=== PATIENT | male | born 1980 | race Caucasian/White ===

== ENCOUNTER 2021-11-03 21:00 | Emergency (ER) | payer BC ==
[~2021-11-03] VITALS: Ht 162.6 cm; Wt 90.9 kg
[2021-11-04 00:43] LABS: BASOPHILS # (AUTO) 0.1 X10'3 (0-0.2); BASOPHILS % (AUTO) 0.9 % (0-1); EOSINOPHILS # (AUTO) 0.1 X10'3 (0-0.9); EOSINOPHILS % (AUTO) 1.5 % (0-6); HEMATOCRIT 43.9 % (42.0-52.0); HEMOGLOBIN 14.6 g/dl (14.0-17.9); LYMPHOCYTES # (AUTO) 2.3 X10'3 (1.1-4.8); LYMPHOCYTES % (AUTO) 24.6 % (21-51); MEAN CORPUSCULAR HEMOGLOBIN 30.1 PG (27.0-31.0); MEAN CORPUSCULAR HGB CONC 33.2 g/dL (33.0-36.5); MEAN CORPUSCULAR VOLUME 90.7 FL (78-98); MONOCYTES # (AUTO) 0.7 X10'3 (0-0.9); MONOCYTES % (AUTO) 7.6 % (2-12); NEUTROPHILS # (AUTO) 6.1 X10'3 (1.8-7.7); NEUTROPHILS % (AUTO) 65.4 % (42-75); PLATELET COUNT 178 X10'3 (140-440); RED BLOOD COUNT 4.84 X10'6 (4.70-6.10); RED CELL DISTRIBUTION WIDTH 13.6 % (11.5-14.5); WHITE BLOOD COUNT 9.3 X10'3 (4.5-11.0)
[2021-11-04 00:54] LABS: ALANINE AMINOTRANSFERASE 57 U/L (12-78); ALBUMIN 3.1 G/DL (3.4-5.0); ALBUMIN/GLOBULIN RATIO 0.9 (1.1-1.5); ALKALINE PHOSPHATASE 71 IU/L (46-116); ANION GAP 9 (8-16); BILIRUBIN,TOTAL 0.9 MG/DL (0.1-1.0); BLOOD UREA NITROGEN 26 MG/DL (7-18); BUN/CREATININE RATIO 30.2 (5.4-32.0); CALCIUM 8.4 MG/DL (8.5-10.1); CHLORIDE 105 MMOL/L (99-107); CREATININE 0.86 MG/DL (0.60-1.10); GLUCOSE 309 MG/DL (70-104); SODIUM 138 MMOL/L (135-145); TOTAL CARBON DIOXIDE 24.4 MMOL/L (24-32); TOTAL PROTEIN 6.4 G/DL (6.4-8.2); eGFR > 90 ML/MIN
[2021-11-04 01:08] LABS: ASPARTATE AMINO TRANSFERASE 49 U/L (10-37); POTASSIUM 4.7 MMOL/L (3.5-5.1)
[2021-11-04 01:14] VITALS: BP 116/89
[2021-11-04 01:15] LABS: CLARITY,URINE CLEAR (Clear); COLOR,URINE YELLOW (Yellow); GLUCOSE, URINE >=1000 mg/dl (Neg); KETONES,URINE TRACE mg/dl (Neg); LEUKOCYTE ESTERASE ,URINE NEGATIVE (Neg); NITRITES, URINE NEGATIVE (Neg); OCCULT BLOOD,URINE NEGATIVE (Neg); PROTEIN,URINE NEGATIVE (Neg); UROBILINOGEN,URINE 0.2 E.U/dL (0.2-1.0)
[2021-11-04 01:19] LABS: UA COLLECTION TYPE CLN CATCH MIDSTREAM
[2021-11-04 01:25] LABS: RBC,URINE 0-2 /HPF (0-2)
[2021-11-04 01:26] LABS: BACTERIA,URINE NONE SEEN /HPF (Neg)
[2021-11-04 01:27] LABS: MUCUS STRANDS MODERATE /LPF (Neg); SQUAMOUS EPITHELIAL CELL,UR MANY /LPF (FEW); YEAST FEW /HPF (NEGATIVE)
[2021-11-04] MEDS ORDERED: FURO-150 PO (01:37)
[2021-11-04] MEDS ORDERED: furosemide 10 MG/1 ML 10ml inj IV ONE (01:40)
[2021-11-04 01:51] LABS: URINE AMPHETAMINE SCREEN POSITIVE (Neg); URINE BARBITUATE SCREEN NEGATIVE (Neg); URINE BENZODIAZEPINES SCREEN NEGATIVE (Neg); URINE CANNABINOID SCREEN NEGATIVE (Neg); URINE COCAINE SCREEN NEGATIVE (Neg); URINE METHADONE SCREEN NEGATIVE (Neg); URINE OPIATE SCREEN NEGATIVE (Neg); URINE PHENCYCLIDINE SCREEN NEGATIVE (Neg)
[2021-11-04 03:11] LABS: LARGE PLATELETS MODERATE; PLATELET ESTIMATE NORMAL
== END 2021-11-04 02:49 | disposition home or self-care (01) ==
LOC: ER 21:01
DX: R60.0 Localized edema (principal); J45.909 Unspecified asthma, uncomplicated
CPT/HCPCS: 36415; 71045; 80053; 80305; 81001; 83880; 84484; 85008; 85025; 85610; 93005; 96374; 99285; J1940; 96372

== ENCOUNTER 2021-11-06 10:56 | Inpatient (IN) | payer BC ==
[~2021-11-06] VITALS: Ht 162.6 cm; Wt 90.9 kg
[~2021-11-06 10:56] MED LIST: FURO-150 PO
[2021-11-06 14:29] LABS: BASOPHILS # (AUTO) 0.1 X10'3 (0-0.2); BASOPHILS % (AUTO) 0.8 % (0-1); EOSINOPHILS # (AUTO) 0.1 X10'3 (0-0.9); EOSINOPHILS % (AUTO) 1.3 % (0-6); HEMATOCRIT 45.5 % (42.0-52.0); HEMOGLOBIN 14.8 g/dl (14.0-17.9); LYMPHOCYTES % (AUTO) 23.5 % (21-51); MEAN CORPUSCULAR HEMOGLOBIN 29.9 PG (27.0-31.0); MEAN CORPUSCULAR HGB CONC 32.5 g/dL (33.0-36.5); MEAN CORPUSCULAR VOLUME 91.8 FL (78-98); MEAN PLATELET VOLUME 10.4 FL (7.4-10.4); MONOCYTES # (AUTO) 0.6 X10'3 (0-0.9); MONOCYTES % (AUTO) 6.4 % (2-12); NEUTROPHILS # (AUTO) 5.9 X10'3 (1.8-7.7); PLATELET COUNT 158 X10'3 (140-440); RED BLOOD COUNT 4.96 X10'6 (4.70-6.10); RED CELL DISTRIBUTION WIDTH 13.7 % (11.5-14.5); WHITE BLOOD COUNT 8.7 X10'3 (4.5-11.0)
[2021-11-06 14:56] LABS: ALANINE AMINOTRANSFERASE 43 U/L (12-78); ALBUMIN 3.2 G/DL (3.4-5.0); ALKALINE PHOSPHATASE 64 IU/L (46-116); ANION GAP 8 (8-16); ASPARTATE AMINO TRANSFERASE 24 U/L (10-37); BILIRUBIN,TOTAL 0.7 MG/DL (0.1-1.0); BLOOD UREA NITROGEN 16 MG/DL (7-18); BUN/CREATININE RATIO 19.3 (5.4-32.0); CALCIUM 8.5 MG/DL (8.5-10.1); CHLORIDE 103 MMOL/L (99-107); CREATININE 0.83 MG/DL (0.60-1.10); GLUCOSE 324 MG/DL (70-104); POTASSIUM 3.9 MMOL/L (3.5-5.1); SODIUM 138 MMOL/L (135-145); TOTAL CARBON DIOXIDE 27.2 MMOL/L (24-32); TOTAL PROTEIN 6.4 G/DL (6.4-8.2); eGFR > 90 ML/MIN
[2021-11-06] MEDS ORDERED: magnesium hydroxide 30ml (MOM) UD suspension PO PRN (15:35)
[2021-11-06] MEDS ORDERED: magnesium 4gm in 100ml NS 100 ML IV PRN (15:35)
[2021-11-06] MEDS ORDERED: DEXTROSE 15 GM of carb/4 tabs (each vial/BOTTLE has 4 tablets) PO PRN ×2 (15:35)
[2021-11-06] MEDS ORDERED: potassium Cl 20 mEq SR tablet PO PRN ×2 (15:35)
[2021-11-06] MEDS ORDERED: PERFLUTREN PROTEIN-A MICROSPHR (Optison) 0.22 MG/ML 3ML VIAL IV ONE (15:35)
[2021-11-06] MEDS ORDERED: acetaminophen 325mg tablet PO PRN (15:35)
[2021-11-06] MEDS ORDERED: ondansetron/PF 4mg/2ml inj IV PRN (15:35)
[2021-11-06] MEDS ORDERED: dextrose 50%-water 50ml dispensing syringe IV PRN ×2 (15:35)
[2021-11-06] MEDS ORDERED: magnesium 2GM in 50ml NS 50 ML IV PRN (15:35)
[2021-11-06] MEDS ORDERED: albuterol 2.5 MG/3 ML nebule NEB PRN (15:35)
[2021-11-06] MEDS ORDERED: MESSAGE TO PHARMACY PO ONE (15:35)
[2021-11-06] MEDS ORDERED: glucagon, human recombinant 1mg kit SUBCUT PRN (15:35)
[2021-11-06] MEDS ORDERED: ipratropium/albuterol 3ml nebule NEB PRN (15:35)
[2021-11-06] MEDS ORDERED: potassium CL 10mEq/100ml bag 100 ML IV PRN (15:35)
[2021-11-06] MEDS ORDERED: mag hydrox/Alum hydrox/simeth 30ml oral suspension PO PRN (15:35)
[2021-11-06] MEDS ORDERED: furosemide 10 MG/1 ML 10ml inj IV ONE (15:45)
[2021-11-06 16:50] LABS: HEMOGLOBIN A1C 11.9 % (4.5-6.2)
[2021-11-06 17:00] VITALS: BP 127/54
[2021-11-06] MEDS ORDERED: FURO20TA4 PO (17:23)
--- NOTE | 2021-11-06 18:40 | NUR ---
Patient in room PCU 3018. I have received report from anna martel and had the opportunity to ask questions and assume patient care.
--- NOTE | 2021-11-06 18:42 | NUR ---
Patient in room PCU 3018. I have received report from Kobe EPSTEIN and had the opportunity to ask questions and assume patient care.
[2021-11-06] MEDS: insulin Lispro (HumaLOG) vial - multi-dose SQ SCH ×2 (19:13→21:26)
[2021-11-06] MEDS: K and/or MAG REPLACEMENT MC SCH (19:15)
[2021-11-06] MEDS: carVEDilol 3.125mg tablet PO SCH (19:20)
[2021-11-06] MEDS: docusate sod 100mg capsule PO SCH (19:20)
[2021-11-06] MEDS: enoxaparin 40mg/0.4ml syringe SQ SCH (19:20)
[2021-11-06 19:31] VITALS: BP 126/93
[2021-11-06] MEDS: insulin glargine (Lantus) pen - multi-dose SQ SCH (21:24)
[2021-11-06 22:00] VITALS: BP 123/87
[2021-11-07] VITALS (7 sets, daily range): BP systolic 104–117; BP diastolic 71–88
[2021-11-07 05:42] LABS: BASOPHILS % (AUTO) 0.6 % (0-1); EOSINOPHILS # (AUTO) 0.2 X10'3 (0-0.9); EOSINOPHILS % (AUTO) 2.1 % (0-6); HEMATOCRIT 43.5 % (42.0-52.0); HEMOGLOBIN 14.4 g/dl (14.0-17.9); LYMPHOCYTES # (AUTO) 2.1 X10'3 (1.1-4.8); LYMPHOCYTES % (AUTO) 27.1 % (21-51); MEAN CORPUSCULAR HEMOGLOBIN 30.1 PG (27.0-31.0); MEAN CORPUSCULAR VOLUME 91.2 FL (78-98); MEAN PLATELET VOLUME 10.4 FL (7.4-10.4); MONOCYTES # (AUTO) 0.6 X10'3 (0-0.9); MONOCYTES % (AUTO) 7.3 % (2-12); NEUTROPHILS # (AUTO) 4.8 X10'3 (1.8-7.7); NEUTROPHILS % (AUTO) 62.9 % (42-75); PLATELET COUNT 155 X10'3 (140-440); RED BLOOD COUNT 4.77 X10'6 (4.70-6.10); RED CELL DISTRIBUTION WIDTH 13.7 % (11.5-14.5); WHITE BLOOD COUNT 7.7 X10'3 (4.5-11.0)
[2021-11-07 05:56] LABS: ALANINE AMINOTRANSFERASE 37 U/L (12-78); ALBUMIN 2.9 G/DL (3.4-5.0); ALBUMIN/GLOBULIN RATIO 0.9 (1.1-1.5); ALKALINE PHOSPHATASE 56 IU/L (46-116); ANION GAP 8 (8-16); ASPARTATE AMINO TRANSFERASE 17 U/L (10-37); BILIRUBIN,TOTAL 0.9 MG/DL (0.1-1.0); BLOOD UREA NITROGEN 17 MG/DL (7-18); BUN/CREATININE RATIO 18.7 (5.4-32.0); CALCIUM 8.3 MG/DL (8.5-10.1); CHLORIDE 104 MMOL/L (99-107); CREATININE 0.91 MG/DL (0.60-1.10); GLUCOSE 129 MG/DL (70-104); MAGNESIUM 2.1 MG/DL (1.5-2.4); POTASSIUM 3.9 MMOL/L (3.5-5.1); SODIUM 143 MMOL/L (135-145); TOTAL CARBON DIOXIDE 31.2 MMOL/L (24-32); eGFR > 90 ML/MIN
[2021-11-07] MEDS ORDERED: lisinopril 10 MG tablet PO SCH (08:00)
[2021-11-07] MEDS: K and/or MAG REPLACEMENT MC SCH ×2 (08:00→19:24)
[2021-11-07] MEDS: docusate sod 100mg capsule PO SCH ×2 (09:12→19:20)
[2021-11-07] MEDS: carVEDilol 3.125mg tablet PO SCH ×2 (09:13→19:21)
[2021-11-07] MEDS: furosemide 10 MG/1 ML 10ml inj IV SCH (10:23)
--- NOTE | 2021-11-07 11:17 | NUR ---
Student documentation: I have reviewed and agree with all interventions, assessments performed and documented by Renard, clinical nursing intern.
--- NOTE | 2021-11-07 11:17 | NUR ---
Student Medication Administration: For this medication-pass time frame, all medication were reviewed, dispensed, administered and documented per hospital policy by devin Glynn student.
--- NOTE | 2021-11-07 11:41 | NUR ---
Diabetes consult: Pt w/ new onset DM per MD note, A1c 11.9. Provided pt and family w/ written and oral DM ed w/ RD contact info. All questions answered to satisfaction. Addendum: 11/07/21 at [address] Amended: Links added.
--- NOTE | 2021-11-07 11:52 | NUR ---
Patient was eating an orange at the time of the 1100 on 11/07 Accu Check.
[2021-11-07] MEDS: EMPAGLIFLOZIN 10 MG TABLET PO SCH (13:58)
[2021-11-07] MEDS: sacubitril/valsartan 24mg-26mg tablet PO SCH ×2 (13:58→19:21)
[2021-11-07] MEDS: insulin Lispro (HumaLOG) vial - multi-dose SQ SCH ×2 (14:12→19:16)
--- NOTE | 2021-11-07 18:28 | NUR ---
Problems reprioritized. Patient report given, questions answered & plan of care reviewed with Alison EPSTEIN.
--- NOTE | 2021-11-07 18:31 | NUR ---
Patient in room PCU 3018. I have received report from Inessa EPSTEIN and had the opportunity to ask questions and assume patient care.
--- NOTE | 2021-11-07 18:32 | NUR ---
Patient in room PCU 3018. I have received report from dian and had the opportunity to ask questions and assume patient care.
[2021-11-07] MEDS: enoxaparin 40mg/0.4ml syringe SQ SCH (19:20)
[2021-11-07] MEDS: insulin glargine (Lantus) pen - multi-dose SQ SCH (21:15)
[2021-11-08] VITALS (7 sets, daily range): BP systolic 85–115; BP diastolic 61–85
--- NOTE | 2021-11-08 06:20 | NUR ---
Problems reprioritized. Patient report given, questions answered & plan of care reviewed with jose martel.
--- NOTE | 2021-11-08 06:20 | NUR ---
Problems reprioritized. Patient report given, questions answered & plan of care reviewed with Damaris EPSTEIN.
[2021-11-08 06:40] LABS: BASOPHILS # (AUTO) 0.1 X10'3 (0-0.2); BASOPHILS % (AUTO) 0.6 % (0-1); EOSINOPHILS # (AUTO) 0.1 X10'3 (0-0.9); EOSINOPHILS % (AUTO) 1.4 % (0-6); HEMATOCRIT 47.4 % (42.0-52.0); HEMOGLOBIN 15.5 g/dl (14.0-17.9); LYMPHOCYTES # (AUTO) 1.9 X10'3 (1.1-4.8); LYMPHOCYTES % (AUTO) 23.1 % (21-51); MEAN CORPUSCULAR HEMOGLOBIN 29.7 PG (27.0-31.0); MEAN CORPUSCULAR HGB CONC 32.6 g/dL (33.0-36.5); MEAN PLATELET VOLUME 11.6 FL (7.4-10.4); MONOCYTES # (AUTO) 0.6 X10'3 (0-0.9); MONOCYTES % (AUTO) 7.7 % (2-12); NEUTROPHILS # (AUTO) 5.6 X10'3 (1.8-7.7); NEUTROPHILS % (AUTO) 67.2 % (42-75); PLATELET COUNT 180 X10'3 (140-440); RED BLOOD COUNT 5.21 X10'6 (4.70-6.10); RED CELL DISTRIBUTION WIDTH 13.8 % (11.5-14.5); WHITE BLOOD COUNT 8.3 X10'3 (4.5-11.0)
[2021-11-08 06:52] LABS: ALANINE AMINOTRANSFERASE 49 U/L (12-78); ALBUMIN 3.1 G/DL (3.4-5.0); ALBUMIN/GLOBULIN RATIO 0.9 (1.1-1.5); ALKALINE PHOSPHATASE 68 IU/L (46-116); ANION GAP 7 (8-16); ASPARTATE AMINO TRANSFERASE 35 U/L (10-37); BILIRUBIN,TOTAL 0.9 MG/DL (0.1-1.0); BLOOD UREA NITROGEN 17 MG/DL (7-18); BUN/CREATININE RATIO 23.6 (5.4-32.0); CALCIUM 8.5 MG/DL (8.5-10.1); CHLORIDE 105 MMOL/L (99-107); CREATININE 0.72 MG/DL (0.60-1.10); GLUCOSE 94 MG/DL (70-104); MAGNESIUM 2.2 MG/DL (1.5-2.4); POTASSIUM 4.1 MMOL/L (3.5-5.1); SODIUM 141 MMOL/L (135-145); TOTAL CARBON DIOXIDE 28.8 MMOL/L (24-32); TOTAL PROTEIN 6.7 G/DL (6.4-8.2); eGFR > 90 ML/MIN
[2021-11-08] MEDS: docusate sod 100mg capsule PO SCH ×2 (07:37→19:09)
[2021-11-08] MEDS: sacubitril/valsartan 24mg-26mg tablet PO SCH ×2 (07:37→19:09)
[2021-11-08] MEDS: EMPAGLIFLOZIN 10 MG TABLET PO SCH (07:37)
[2021-11-08] MEDS: carVEDilol 3.125mg tablet PO SCH ×2 (07:37→19:09)
[2021-11-08] MEDS: furosemide 10 MG/1 ML 10ml inj IV SCH (07:38)
[2021-11-08] MEDS: K and/or MAG REPLACEMENT MC SCH ×2 (08:00→19:10)
--- NOTE | 2021-11-08 08:51 | NUR ---
PAGER ID: [phone] MESSAGE: [id number] Frankie Varela: patient started Jardiance yesterday would you like to continue the diabetic protocol with insulin as well? thank you! [id number]
[2021-11-08] MEDS: insulin Lispro (HumaLOG) vial - multi-dose SQ SCH ×3 (09:11→19:06)
--- NOTE | 2021-11-08 18:21 | NUR ---
Problems reprioritized. Patient report given, questions answered & plan of care reviewed with LUCIAN Rosas.
--- NOTE | 2021-11-08 18:42 | NUR ---
Patient in room PCU 3018. I have received report from Damaris EPSTEIN and had the opportunity to ask questions and assume patient care.
--- NOTE | 2021-11-08 18:43 | NUR ---
Patient in room PCU 3018. I have received report from jose martel and had the opportunity to ask questions and assume patient care.
[2021-11-08] MEDS: enoxaparin 40mg/0.4ml syringe SQ SCH (19:09)
[2021-11-08] MEDS: insulin glargine (Lantus) pen - multi-dose SQ SCH (21:06)
[2021-11-09 06:00] VITALS: BP 112/82
--- NOTE | 2021-11-09 06:05 | NUR ---
Problems reprioritized. Patient report given, questions answered & plan of care reviewed with jesus martel.
--- NOTE | 2021-11-09 06:06 | NUR ---
Problems reprioritized. Patient report given, questions answered & plan of care reviewed with Jacquie EPSTEIN.
[2021-11-09 06:31] LABS: ALANINE AMINOTRANSFERASE 35 U/L (12-78); ALBUMIN 2.8 G/DL (3.4-5.0); ALBUMIN/GLOBULIN RATIO 0.9 (1.1-1.5); ALKALINE PHOSPHATASE 59 IU/L (46-116); ANION GAP 7 (8-16); ASPARTATE AMINO TRANSFERASE 22 U/L (10-37); BILIRUBIN,TOTAL 0.5 MG/DL (0.1-1.0); BLOOD UREA NITROGEN 18 MG/DL (7-18); BUN/CREATININE RATIO 15.9 (5.4-32.0); CALCIUM 8.4 MG/DL (8.5-10.1); CHLORIDE 109 MMOL/L (99-107); CREATININE 1.13 MG/DL (0.60-1.10); GLUCOSE 120 MG/DL (70-104); MAGNESIUM 2.4 MG/DL (1.5-2.4); POTASSIUM 3.6 MMOL/L (3.5-5.1); SODIUM 144 MMOL/L (135-145); TOTAL CARBON DIOXIDE 27.8 MMOL/L (24-32); eGFR 71 ML/MIN
[2021-11-09 06:42] LABS: BASOPHILS # (AUTO) 0.1 X10'3 (0-0.2); BASOPHILS % (AUTO) 0.8 % (0-1); EOSINOPHILS # (AUTO) 0.2 X10'3 (0-0.9); EOSINOPHILS % (AUTO) 2.4 % (0-6); HEMATOCRIT 43.5 % (42.0-52.0); HEMOGLOBIN 14.4 g/dl (14.0-17.9); LYMPHOCYTES % (AUTO) 25.6 % (21-51); MEAN CORPUSCULAR HEMOGLOBIN 30.3 PG (27.0-31.0); MEAN CORPUSCULAR HGB CONC 33.2 g/dL (33.0-36.5); MEAN CORPUSCULAR VOLUME 91.4 FL (78-98); MEAN PLATELET VOLUME 11.1 FL (7.4-10.4); MONOCYTES # (AUTO) 0.8 X10'3 (0-0.9); MONOCYTES % (AUTO) 9.7 % (2-12); NEUTROPHILS # (AUTO) 4.9 X10'3 (1.8-7.7); NEUTROPHILS % (AUTO) 61.5 % (42-75); PLATELET COUNT 177 X10'3 (140-440); RED BLOOD COUNT 4.76 X10'6 (4.70-6.10); RED CELL DISTRIBUTION WIDTH 13.8 % (11.5-14.5)
[2021-11-09] MEDS: docusate sod 100mg capsule PO SCH ×2 (08:00→20:46)
[2021-11-09] MEDS: K and/or MAG REPLACEMENT MC SCH ×2 (08:00→20:00)
[2021-11-09 08:15] LABS: LARGE PLATELETS FEW; PLATELET ESTIMATE NORMAL
[2021-11-09] MEDS: furosemide 10 MG/1 ML 10ml inj IV SCH (09:52)
[2021-11-09] MEDS: carVEDilol 3.125mg tablet PO SCH ×2 (09:53→20:00)
[2021-11-09] MEDS: sacubitril/valsartan 24mg-26mg tablet PO SCH ×2 (09:53→20:00)
--- NOTE | 2021-11-09 10:10 | NUR ---
Initial: Pt admit for new onset CHF with EF 10% and DM. 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 Pt currently on a heart healthy CHO controlled diet with a 2L fluid restriction and eating well, documented with 100% PO intake throughout LOS meeting estimated nutrient needs. D/w dietary to send double protein with meals for satiety. LBM 11/08, receiving routine bowel care. Will continue to follow. Recommendations: 1) Continue heart healthy CHO controlled diet with 2 L fluid restriction per MD 2) Double eggs WB, double meat BIDLD for satiety 3) Routine bowel care 4) Scaled weight this admit; subsequent weekly scaled weights Addendum: 11/09/21 at [address] Amended: Links added.
[2021-11-09 11:00] VITALS: BP 91/68
[2021-11-09] MEDS: EMPAGLIFLOZIN 10 MG TABLET PO SCH (11:36)
[2021-11-09 15:00] VITALS: BP 92/64
[2021-11-09 18:00] VITALS: BP 116/89
--- NOTE | 2021-11-09 18:00 | NUR ---
Patient in room PCU 3018. I have received report from Jacquie Heller RN and had the opportunity to ask questions and assume patient care.
[2021-11-09] MEDS: insulin Lispro (HumaLOG) vial - multi-dose SQ SCH (18:46)
[2021-11-09] MEDS: enoxaparin 40mg/0.4ml syringe SQ SCH (20:47)
[2021-11-09 22:00] VITALS: BP 108/76
[2021-11-09] MEDS: insulin glargine (Lantus) pen - multi-dose SQ SCH (22:05)
[2021-11-10 02:00] VITALS: BP 122/90
[2021-11-10 06:00] VITALS: BP 121/89
[2021-11-10 06:13] LABS: BASOPHILS # (AUTO) 0.1 X10'3 (0-0.2); BASOPHILS % (AUTO) 0.7 % (0-1); EOSINOPHILS # (AUTO) 0.2 X10'3 (0-0.9); EOSINOPHILS % (AUTO) 1.9 % (0-6); HEMATOCRIT 43.3 % (42.0-52.0); HEMOGLOBIN 14.2 g/dl (14.0-17.9); LYMPHOCYTES # (AUTO) 2.3 X10'3 (1.1-4.8); LYMPHOCYTES % (AUTO) 25.4 % (21-51); MEAN CORPUSCULAR HGB CONC 32.8 g/dL (33.0-36.5); MEAN CORPUSCULAR VOLUME 91.6 FL (78-98); MEAN PLATELET VOLUME 10.8 FL (7.4-10.4); MONOCYTES # (AUTO) 0.9 X10'3 (0-0.9); MONOCYTES % (AUTO) 9.9 % (2-12); NEUTROPHILS # (AUTO) 5.7 X10'3 (1.8-7.7); NEUTROPHILS % (AUTO) 62.1 % (42-75); PLATELET COUNT 179 X10'3 (140-440); RED BLOOD COUNT 4.73 X10'6 (4.70-6.10); RED CELL DISTRIBUTION WIDTH 13.8 % (11.5-14.5); WHITE BLOOD COUNT 9.2 X10'3 (4.5-11.0)
--- NOTE | 2021-11-10 06:13 | NUR ---
Patient in room PCU 3018. I have received report from Problems reprioritized. Patient report given,Jacquie Diaz questions answered & plan of care reviewed with . and had the opportunity to ask questions and assume patient care.
[2021-11-10 06:41] LABS: ALANINE AMINOTRANSFERASE 33 U/L (12-78); ALBUMIN/GLOBULIN RATIO 0.9 (1.1-1.5); ALKALINE PHOSPHATASE 61 IU/L (46-116); ANION GAP 7 (8-16); ASPARTATE AMINO TRANSFERASE 19 U/L (10-37); BILIRUBIN,TOTAL 0.5 MG/DL (0.1-1.0); BLOOD UREA NITROGEN 26 MG/DL (7-18); BUN/CREATININE RATIO 24.5 (5.4-32.0); CALCIUM 8.4 MG/DL (8.5-10.1); CHLORIDE 108 MMOL/L (99-107); CREATININE 1.06 MG/DL (0.60-1.10); GLUCOSE 141 MG/DL (70-104); MAGNESIUM 2.3 MG/DL (1.5-2.4); SODIUM 143 MMOL/L (135-145); TOTAL CARBON DIOXIDE 27.7 MMOL/L (24-32); TOTAL PROTEIN 6.4 G/DL (6.4-8.2); eGFR 77 ML/MIN
[2021-11-10] MEDS: furosemide 10 MG/1 ML 10ml inj IV SCH (08:00)
[2021-11-10] MEDS: K and/or MAG REPLACEMENT MC SCH (08:00)
[2021-11-10] MEDS: carVEDilol 3.125mg tablet PO SCH (08:04)
[2021-11-10] MEDS: docusate sod 100mg capsule PO SCH (08:04)
[2021-11-10] MEDS: EMPAGLIFLOZIN 10 MG TABLET PO SCH (08:04)
[2021-11-10] MEDS: sacubitril/valsartan 24mg-26mg tablet PO SCH (08:04)
[2021-11-10 11:00] VITALS: BP 112/79
[2021-11-10] MEDS ORDERED: FURO20TA4 PO (11:40)
[2021-11-10] MEDS ORDERED: COR3.125T PO (11:40)
[2021-11-10] MEDS ORDERED: SACU1TAB PO (11:40)
[2021-11-10] MEDS ORDERED: EMPA10TA PO (11:40)
== END 2021-11-10 13:58 | disposition home or self-care (01) | DRG 292 ==
LOC: ER 10:57 → ED HOLD 15:41 → PCU 3S 16:44
PROVIDERS: ADMIT Family Medicine; ATTEND Family Medicine
DX: I50.21 Acute systolic (congestive) heart failure (principal); I42.0 Dilated cardiomyopathy; I42.7 Cardiomyopathy due to drug and external agent; E11.65 Type 2 diabetes mellitus with hyperglycemia; F12.90 Cannabis use, unspecified, uncomplicated; F15.10 Other stimulant abuse, uncomplicated; F17.210 Nicotine dependence, cigarettes, uncomplicated; I50.82 Biventricular heart failure; J45.909 Unspecified asthma, uncomplicated; J98.4 Other disorders of lung; Z79.84 Long term (current) use of oral hypoglycemic drugs; Z79.899 Other long term (current) drug therapy; Z80.8 Family history of malignant neoplasm of other organs or systems; Z82.49 Family history of ischemic heart disease and other diseases of the circulatory system; Z83.3 Family history of diabetes mellitus; Z71.6 Tobacco abuse counseling; Z71.51 Drug abuse counseling and surveillance of drug abuser
CPT/HCPCS: 36415; 80053; 82948; 83036; 83735; 83880; 85008; 85025; 85610; 93005; 93306; 94760; 99285; G0378; J1650; J1815; J1940